=== PATIENT | male | born 1995 | race Caucasian/White ===

== ENCOUNTER 2022-09-14 23:28 | Emergency (ER) | payer MEDICAID, SELFPAY ==
[2022-09-14 23:28] VITALS: BP 151/95; PULSE 125; RESP 20; TEMP 36.8; O2SAT 99
[2022-09-15] VITALS (13 sets, daily range): BP systolic 115–127; BP diastolic 65–83; PULSE 97–104; O2SAT 94–98
--- NOTE | 2022-09-15 | DI.CT_ITS ---
Exam(s) CT HEAD WO EXAM: CT HEAD WO CLINICAL HISTORY: amnesia period, r/o acute process. TECHNIQUE: Imaging Protocol: Axial computed tomography images with coronal and sagittal reformatted images were created and reviewed COMPARISON: No exams were available for comparison FINDINGS: There are no skull fractures. There is mucosal thickening in the bilateral maxillary sinuses, not ass ociated with fluid levels. Also significant mucosal thickening in the frontoethmoidal recesses bilat erally. Sphenoid sinuses are clear. Mastoid air cells are clear. There is no evidence of intracranial hemorrhage, mass effect, or shift of midline structures. There are no extra-axial fluid collections. The ventricles are not enlarged or shifted and there is no blo od within the ventricular system nor within the basal cisterns. Septum cavum pellucidum incidentally noted. IMPRESSION: No acute intracranial findings on this noninfused CT scan of the brain. Paranasal sinus findings as described above. RADIATION DOSE DELIVERED: 985.43mGy.cm Total DLP DATA REPOSITORY: All CT scans at this facility are submitted to the National Radiology Data Registry (NRDR) Dose Index Registry (DIR) with the [employer] ([employer]). RADIATION OPTIMIZATION: All CT scans at this facility use at least one of these dose optimization te chniques: automated exposure control; mA and/or kV adjustment per patient size (includes targeted exa ms where dose is matched to clinical indication); or iterative reconstruction.
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
[2022-09-15 00:28] LABS: Abs Immature Grans 0.11 10^3/uL (0.0-0.06); Absolute Basophil Count 0.05 10^3/uL (0.0-0.2); Absolute Eosinophil Count 0.06 10^3/uL (0.0-0.7); Absolute Lymphocyte Count 3.09 10^3/uL (1.2-3.4); Absolute Monocyte Count 0.54 10^3/uL (0.1-0.8); Absolute Neutrophil Count 5.74 10^3/uL (1.2-6.7); Basophils % 0.5; Eosinophils % 0.6; HCT 53.4 % (40.0-50.0); HGB 17.7 g/dL (13.5-17.5); Immature Grans % 1.1; Lymphocytes % 32.2; MCH 29.9 pg (27.0-33.0); MCHC 33.1 % (32.0-36.0); MCV 90 fL (80-95); MPV 9.8 fL (8.0-11.0); Monocytes % 5.6; Platelet Count 299 10^3/uL (130-400); RBC 5.91 10^6/uL (4.36-5.78); RDW 12.5 % (11.8-14.1); RDW-SD 41.5 fL; WBC 9.59 10^3/uL (4.4-10.8)
[2022-09-15 00:44] LABS: ALT 37 U/L (16-63); AST 29 U/L (15-37); Albumin 4.2 g/dL (3.4-5.0); Alkaline Phosphatase 101 U/L (46-116); Anion Gap 11.7 mmol/L (3-11); BUN 9 mg/dL (7-18); Bilirubin, Total 0.5 mg/dL (0.2-1.0); CO2 27.3 mmol/L (21.0-32.0); CREATININE 0.9 mg/dL (0.70-1.30); Calcium 9.3 mg/dL (8.5-10.1); Chloride 104 mmol/L (98-107); Estimated GFR 121.55 (mL/min/1.73m2); Glucose 92 mg/dL (74-106); Potassium 3.6 mmol/L (3.5-5.1); Sodium 143 mmol/L (136-145); Total Protein 8.5 g/dL (6.4-8.2)
[2022-09-15] MEDS: Normal Saline 1,000 ML 1000 ML IV (00:52)
--- NOTE | 2022-09-15 01:22 | DI.VRAD_ITS ---
PROCEDURE INFORMATION: Exam: CT Head Without Contrast Exam date and time: 09/15/2022 12:36 AM Age: 26 years old Clinical indication: Other: Amnesia period, R/O acute process TECHNIQUE: Imaging protocol: Computed tomography of the head without contrast. Radiation optimization: All CT scans at this facility use at least one of these dose optimization techniques: automated exposure control; mA and/or kV adjustment per patient size (includes targeted exams where dose is matched to clinical indication); or iterative reconstruction. COMPARISON: No relevant prior studies available. FINDINGS: Brain: Normal. No hemorrhage. Unremarkable white matter. No mass effect. Cerebral ventricles: No ventriculomegaly. A cavum septum pellucidum is present. Paranasal sinuses: Mucoperiosteal thickening of the maxillary and ethmoid sinuses bilaterally. No fluid levels. Mastoid air cells: Visualized mastoid air cells are well aerated. Bones/joints: Unremarkable. No acute fracture. Soft tissues: Unremarkable. IMPRESSION: No acute intracranial abnormality. Dictated and Authenticated by: Tom Magana MD. Ordering:ZHAO Sahu MD
[2022-09-15 03:04] LABS: *AMPHETAMINES SCREEN URINE Negative (Negative); *BARBITURATES SCREEN URINE Negative (Negative); *BENZODIAZEPINES SCREEN URINE Negative (Negative); Cannabinoids THC Positive (Negative); Cocaine Screen,Urine Negative (Negative); METHADONE URINE SCREEN Negative (Negative); OPIATES URINE SCREEN Negative (Negative)
[2022-09-15 03:05] LABS: Tricyclic Antidepressants Negative (Negative)
[2022-09-15 03:08] LABS: Bilirubin Negative (Negative); Blood Negative (Negative); Clarity Clear (Clear); Glucose Negative (Negative); Ketones Trace mg/dL (Negative); Leukocyte Esterase Negative (Negative); Nitrite Negative (Negative); Specific Gravity 1.025 (1.005-1.025); Urobilinogen 0.2 EU/dL (Up TO 0.2); pH 5.5 (5-8)
== END 2022-09-15 02:59 | disposition home or self-care (01) ==
PROVIDERS: Emergency Provider Physician Assistant
DX: S00.81XA Abrasion of other part of head, initial encounter (principal); R41.3 Other amnesia; Z59.00 Homelessness unspecified; F12.90 Cannabis use, unspecified, uncomplicated; R03.0 Elevated blood-pressure reading, without diagnosis of hypertension; Z87.828 Personal history of other (healed) physical injury and trauma; E86.0 Dehydration; W19.XXXA Unspecified fall, initial encounter; Y93.29 Activity, other involving ice and snow; Y99.8 Other external cause status; S60.511A Abrasion of right hand, initial encounter
CPT/HCPCS: 80053; 80307; 96360; 99284; 70450; 81003; 85025

== ENCOUNTER 2023-12-06 12:32 | Emergency (ER) | payer MEDICAID, SELFPAY ==
[2023-12-06 12:32] VITALS: BP 128/91; PULSE 76; RESP 14; TEMP 36.2; O2SAT 97
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
[2023-12-06 13:05] VITALS: RESP 14
[2023-12-06 14:51] VITALS: BP 128/91; PULSE 76; RESP 14; TEMP 36.2; O2SAT 99
== END 2023-12-06 14:54 | disposition home or self-care (01) ==
LOC: ER 14:43
PROVIDERS: Emergency Provider Physician Assistant
DX: F41.0 Panic disorder [episodic paroxysmal anxiety] (principal); F32.89 Other specified depressive episodes; Z79.899 Other long term (current) drug therapy
CPT/HCPCS: 99284; 99285

== ENCOUNTER 2024-01-23 18:15 | Outpatient (REF) | payer MEDICAID, SELFPAY ==
[2024-01-23 22:02] LABS: ALT 25 U/L (16-63); AST 17 U/L (15-37); Albumin 4.4 g/dL (3.4-5.0); Alkaline Phosphatase 94 U/L (46-116); Anion Gap 11.1 mmol/L (3-11); BUN 9 mg/dL (7-18); Bilirubin, Total 0.8 mg/dL (0.2-1.0); CO2 25.9 mmol/L (21.0-32.0); CREATININE 0.8 mg/dL (0.70-1.30); Calcium 9.6 mg/dL (8.5-10.1); Calculated LDL 63 mg/dL (<100); Chloride 105 mmol/L (98-107); Cholesterol 141 mg/dL (<200); Glucose 92 mg/dL (74-106); HDL Cholesterol 63 mg/dL (40-60); Potassium 4.3 mmol/L (3.5-5.1); Sodium 142 mmol/L (136-145); Total Protein 7.5 g/dL (6.4-8.2); Triglyceride 77 mg/dL (<150)
== END 2024-01-23 18:16 | disposition home or self-care (01) ==
LOC: NCHCN 18:15
PROVIDERS: Visit Provider Family Medicine
DX: E66.9 Obesity, unspecified (principal)
CPT/HCPCS: 80053; 80061